=== PATIENT | female | born 1975 | race Caucasian/White ===

== ENCOUNTER 2016-05-06 13:36 | Emergency (ER) | payer OTHER ==
[2016-05-06 14:08] LABS: BASOPHIL 0.5 % (0-2); EOSINOPHIL 0.2 % (0-5); MCV 98.5 fL (78.0-100.0); WBC 5.8 K/uL (4.0-10.5)
[2016-05-06 14:41] LABS: CREATININE 0.5 mg/dL (0.5-1.0)
[2016-05-06 15:03] LABS: HCT 53.9 % (37.0-47.0); MCH 31.1 pg (25.0-31.0); MCHC 31.5 g/dL (32.0-36.0); MONOCYTE 4.3 % (0-12); MPV 9.9 fL (6.0-9.5); PLT 141 K/uL (150-400); RBC 5.47 M/uL (4.20-5.40); RDW 15.5 % (11.5-14.0)
== END 2016-05-06 16:27 | disposition left against medical advice (07) ==
LOC: FER 13:36
PROVIDERS: Emergency Medicine
DX: J18.9 Pneumonia, unspecified organism (principal); J44.1 Chronic obstructive pulmonary disease with (acute) exacerbation; J45.909 Unspecified asthma, uncomplicated; I10 Essential (primary) hypertension; E11.42 Type 2 diabetes mellitus with diabetic polyneuropathy; F32.9 Major depressive disorder, single episode, unspecified; F17.210 Nicotine dependence, cigarettes, uncomplicated; Z79.51 Long term (current) use of inhaled steroids; Z79.899 Other long term (current) drug therapy
CPT/HCPCS: 36415; 36600; 71020; 80048; 82803; 84484; 85025; 87804; 87899; 93005; 94640; J2930